=== PATIENT | female | born 1945 | race Caucasian/White ===

== ENCOUNTER 2021-12-21 09:37 | Emergency (ER) | payer MEDICARE, OTHER ==
[2021-12-21] MEDS ORDERED: Lidocaine 1% PF 5 ML VIAL ONE (10:08)
[2021-12-21] MEDS ORDERED: Bacitracin 1 PK ONE (11:39)
== END 2021-12-21 11:50 | disposition home or self-care (01) ==
LOC: MADERS 09:37
DX: S61.011A Laceration without foreign body of right thumb without damage to nail, initial encounter (principal); I25.2 Old myocardial infarction; I10 Essential (primary) hypertension; E78.5 Hyperlipidemia, unspecified; E78.00 Pure hypercholesterolemia, unspecified; F17.210 Nicotine dependence, cigarettes, uncomplicated; Z86.73 Personal history of transient ischemic attack (TIA), and cerebral infarction without residual deficits; Z79.01 Long term (current) use of anticoagulants; Z79.82 Long term (current) use of aspirin; Z79.899 Other long term (current) drug therapy
CPT/HCPCS: 12001